=== PATIENT | male | born 1985 | race Asian ===

== ENCOUNTER 2022-08-24 10:31 | Outpatient (CLI) | payer MEDICAID | END 2022-08-24 23:59 | disposition home or self-care (01) | LOC: MLB 10:31 → EDSTATUS 08-26 15:50 | PROVIDERS: ATTEND Internal Medicine Gastroenterology | DX: Z01.812 Encounter for preprocedural laboratory examination (principal); Z20.822 Contact with and (suspected) exposure to COVID-19 ==

== ENCOUNTER 2023-02-10 08:16 | Day surgery (SDC) | payer OTHER ==
[~2023-02-10] VITALS: Ht 172.7 cm; Wt 76.2 kg
[2023-02-10] MEDS ORDERED: fentaNYL citrate 0.05 MG/ML VIAL ONE (09:35)
[2023-02-10] MEDS ORDERED: LIDOCAINE 2% 100 MG/5 ML UJET TP ONE (09:36)
[2023-02-10] MEDS ORDERED: MIDAZOLAM 2 MG/2 ML VIAL ONE (09:36)
[2023-02-10] MEDS ORDERED: fentaNYL citrate 0.05 MG/ML VIAL IVP ONE (15:50)
== END 2023-02-10 10:55 | disposition home or self-care (01) ==
LOC: MOR 08:16 → MMU 08:17 → MOR 10:55
PROVIDERS: ATTEND Internal Medicine Gastroenterology
DX: R19.4 Change in bowel habit (principal); K63.5 Polyp of colon
CPT/HCPCS: 45385; J3010; J2250